=== PATIENT | female | born 1970 | race Caucasian/White ===

== ENCOUNTER 2023-05-17 04:47 | Day surgery (SDC) | payer BC, OTHER ==
[2023-05-15 15:14] VITALS: BMI 25.8
[2023-05-17] MEDS ORDERED: BUPIVACAINE HCL/PF 0.5% (5MG/ML) 10 ML VIAL ONE (10:48)
[2023-05-17] MEDS ORDERED: LIDOCAINE HCL/PF 2% SDV 5ML VIAL ONE (12:47)
[2023-05-17] MEDS ORDERED: PROPOFOL 20 ML ONE (12:47)
[2023-05-17] MEDS ORDERED: MIDAZOLAM HCL 2 MG/2 ML SINGLE DOSE VIAL ONE (12:47)
[2023-05-17] MEDS ORDERED: ceFAZolin SODIUM 1 GM VIAL ONE (13:05)
[2023-05-17] MEDS ORDERED: ceFAZolin SODIUM 1 GM VIAL IVPB ONE (13:05)
[2023-05-17] MEDS ORDERED: DEXAMETHASONE SOD PHOSPHATE 4 MG/1 ML VIAL ONE (13:17)
[2023-05-17] MEDS ORDERED: ONDANSETRON 4 MG/2 ML VIAL ONE (13:17)
[2023-05-17] MEDS ORDERED: KETOROLAC TROMETHAMINE 30 MG/1 ML VIAL ONE (13:17)
[2023-05-17] MEDS ORDERED: BUPIVACAINE HCL/PF 0.5% (5MG/ML) 10 ML VIAL NR ONE (13:30)
[2023-05-17] MEDS ORDERED: oxyCODONE HCL 5 MG TABLET PO PRN (14:06)
[2023-05-17] MEDS ORDERED: ONDANSETRON 4 MG/2 ML VIAL IVPUSH PRN (14:06)
[2023-05-17] MEDS ORDERED: LACTATED RINGERS SOLUTION 1,000 ML IV SCH (14:15)
[2023-05-17 16:26] VITALS: RESP 18
[2023-05-17 17:16] VITALS: BP 140/85; PULSE 73; TEMP 97.1
== END 2023-05-17 16:50 | disposition home or self-care (01) ==
LOC: JASU-SURG 04:47
PROVIDERS: ATTEND Orthopaedic Surgery
PROC: 0SBD4ZZ Excision of Left Knee Joint, Percutaneous Endoscopic Approach (ICD-10-PCS; principal; 2023-05-17 12:30)
DX: M65.862 Other synovitis and tenosynovitis, left lower leg (principal)
CPT/HCPCS: 94760